=== PATIENT | female | born 1970 | race Caucasian/White ===

== ENCOUNTER 2016-06-17 06:35 | Observation (INO) | payer BC, OTHER ==
[~2016-06-17] VITALS: Ht 157.5 cm; Wt 61.7 kg
--- NOTE | ~2016-06-17 | D ---
[facility] [address] [address] DISCHARGE SUMMARY Name: ARISTEO CHÁVEZ Room #: 214-P [facility]..#: [id number] Admission: 06/17/16 Attend Phys: Raúl Gibson MD Discharge: Date of : 74 Report #: [id number] THIS REPORT FOR: //name// CC: Aristeo Gibson DATE OF SERVICE: 06/17/2016 DISCHARGE DIAGNOSES: 1. Supraventricular tachycardia. 2. Typical atrioventricular goyo reentrant tachycardia. PROCEDURES PERFORMED: SVT ablation. HISTORY OF PRESENT ILLNESS: The patient is a 46-year-old female with a history of supraventricular tachycardia, on beta blockers and flecainide therapy, who has failed medications and is here for an ablation. The patient underwent EP study. She had very easily inducible AV goyo reentrant tachycardia. Almost any pacing maneuvers would induce the tachycardia. This was successfully ablated. While testing on isoproterenol, the patient had some nonspecific arrhythmias such as some brief runs of atrial tachycardia as well as some atrial flutter that required cardioversion. This was not ablated as I did not think this was clinically relevant. HOSPITAL COURSE: I decided to monitor the patient overnight given that she had some of these arrhythmias while on isoproterenol. On telemetry overnight, she had no further arrhythmias. Following day, she was doing well without any chest pain. She had no shortness of breath. She did have some headaches from I believe the anesthesia. Examination of her groins showed some ecchymosis on both sides, as venous access was slightly more challenging than usual on both sides. However, there was no hematoma noted. As such, she was deemed stable for discharge home. I did discontinue her beta ken and flecainide therapy. Given that she is on control, I asked her to take aspirin for 2 days. Typically, if they are on control, I will place them on Pradaxa for 7-10 days, but given that she is having her period, we will hold off on this for approximately 3 days and then she will take the Pradaxa until she runs out of her samples. I instructed her to call if she has any chest pain, shortness of breath, leg swelling or worsening groin issues. She will follow up in my clinic in 3 months. By: [id number] Raúl Gibson MD /nt
[2016-06-17] MEDS ORDERED: PANTOPRAZOLE SO40 M1 PO (07:00)
[2016-06-17] MEDS ORDERED: LORYNA 3 MG-0.1 EACH PO (07:00)
[2016-06-17] MEDS ORDERED: ASPIR 8181 MG PO (07:01)
[2016-06-17] MEDS ORDERED: FLECAINIDE ACET50 M2 PO (07:02)
[2016-06-17] MEDS ORDERED: TOPROL XL25 MG PO (07:06)
[2016-06-17 07:09] VITALS: BP 126/51
[2016-06-17 07:19] LABS: BASOPHILS 0.5 % (0.0-2.0); EOSINOPHILS 1.5 % (0.0-3.0); HEMATOCRIT 41.1 % (37.0-47.0); HEMOGLOBIN 14.3 gm/dL (12.0-15.0); LYMPHOCYTES 30.6 % (24.0-44.0); MCH 32.7 pg (26.0-34.0); MCHC 34.8 g/dL (28.0-37.0); MONOCYTES 5.7 % (1.0-8.0); PLATELET COUNT 193 thou/uL (150-400); POLYS 61.7 % (36.0-66.0); RBC 4.37 mil/uL (4.20-5.00); RDW 12.8 % (10.5-14.5); WBC 4.9 thou/uL (4.0-11.0)
[2016-06-17 07:22] LABS: MANUAL DIFF NO
[2016-06-17 07:28] LABS: CALCIUM 8.7 mg/dL (8.5-10.1); CREATININE 0.8 mg/dL (0.6-1.3); POTASSIUM 3.7 mmol/L (3.5-5.1)
[2016-06-17 07:33] LABS: ALBUMIN 3.6 g/dL (3.4-5.0); TOTAL BILIRUBIN 0.2 mg/dL (<0.1-1.0); TOTAL PROTEIN 7.5 g/dL (6.4-8.2)
[2016-06-17 07:44] LABS: APTT 25.3 Seconds (24.5-32.8); PROTIME 9.7 Seconds (9.3-11.4)
[2016-06-17 19:18] VITALS: BP 106/62
[2016-06-18 03:50] VITALS: BP 104/65
[2016-06-18 07:17] VITALS: BP 100/69
[2016-06-18 10:31] VITALS: BP 100/69
== END 2016-06-18 11:57 | disposition home or self-care (01) ==
LOC: CATH 06:35 → 2N 13:07 → CATH 13:13 → 2N 06-18 11:57
PROVIDERS: Internal Medicine Cardiovascular Disease
DX: I47.1 Supraventricular tachycardia (principal)
CPT/HCPCS: 62110; 62900; 70005

== ENCOUNTER 2018-06-01 13:35 | Emergency (ER) | payer BC, OTHER ==
[~2018-06-01] VITALS: Ht 157.5 cm; Wt 58.1 kg
[~2018-06-01 13:35] MED LIST: ASPIR 8181 MG PO; FLECAINIDE ACET50 M2 PO; LORYNA 3 MG-0.1 EACH PO; PANTOPRAZOLE SO40 M1 PO; TOPROL XL25 MG PO
[2018-06-01] MEDS ORDERED: VITAMIN B-12500 MCG PO (14:02)
[2018-06-01] MEDS ORDERED: ZANTAC 150MG T150 MG PO (14:02)
[2018-06-01] MEDS ORDERED: CALCIUM 500 +1 EAC5 PO (14:03)
[2018-06-01 14:07] LABS: HEMATOCRIT 45.6 % (37.0-47.0); HEMOGLOBIN 15.9 gm/dL (12.0-15.0); MCH 34.1 pg (26.0-34.0); MCHC 34.9 g/dL (28.0-37.0); MCV 97.8 fL (80.0-100.0); RBC 4.67 mil/uL (4.20-5.00); RDW 13.1 % (10.5-14.5); WBC 7.5 thou/uL (4.0-11.0)
[2018-06-01 14:25] LABS: ANION GAP 10 mmol/L (7-16); BUN 11 mg/dL (7-18); CALCIUM 9.6 mg/dL (8.5-10.1); CHLORIDE 104 mmol/L (98-107); CO2 28 mmol/L (21-32); CREATININE 0.8 mg/dL (0.6-1.0); GLUCOSE 109 mg/dL (74-106); POTASSIUM 3.3 mmol/L (3.5-5.1); SODIUM 142 mmol/L (136-145)
[2018-06-01 14:33] LABS: ALBUMIN 4.1 g/dL (3.4-5.0); SGOT 28 U/L (15-37); SGPT 31 U/L (30-65); TOTAL BILIRUBIN 0.3 mg/dL (<0.1-1.0); TOTAL PROTEIN 8.1 g/dL (6.4-8.2); TROPONIN-I <0.06 ng/mL (<0.06)
--- NOTE | 2018-06-01 15:20 | EKG ---
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 : 1970 Requested By: Chichi Mckeon Order Number: [id number] MD: Long Mcmahon Measurements Intervals [place] Rate: 117 P: 71 [place]: 155 QRS: -63 QRSD: 88 T: 51 QT: 329 QTc: 459 Interpretive Statements Sinus tachycardia LAE Left anterior fascicular block Borderline low voltage, limb leads NS ST/T wave abnormalities No previous ECG available for comparison Electronically Signed On 06-01-2018 15:19:47 WOOD 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
[2018-06-01 15:38] VITALS: BP 116/71
--- NOTE | 2018-06-03 12:17 | HC ---
[facility] [place] [address] [place] [address] CONSULTATION Name: NOLA ARISTEO MCBRIDE [facility] [id number] Admission: 06/01/18 ������������������ Attend Phys: Discharge: 06/01/18 ������������������ Date of : 74 Report #: [id number] THIS REPORT FOR: //name// CC: Chichi Bedolla unknown TYPE OF REPORT: Cardiology consultation. REASON FOR CONSULTATION: SVT. HISTORY OF PRESENT ILLNESS: The patient is a 48-year-old patient of mine who has a history of SVT. She underwent prior EP study back in 2017 and had no inducible arrhythmias but has continued to have episodes of SVT. 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 Today, she had an episode while at work of palpitations. She used her monitor from [employer]. This showed an episode of supraventricular tachycardia at 200-222 beats per minute with no discernible P waves suggestive of possible AV goyo reentrant tachycardia. This episode lasted from 11:40 to about noon and then a repeat strip showed that she was in sinus tachycardia. She presented to the Emergency Room for further evaluation. Her presenting EKG showed a sinus tachycardia. Her heart rate is improved. She denies any chest pain, shortness of breath, PND, orthopnea, pre-syncope or syncope. PAST MEDICAL HISTORY: As above. SOCIAL HISTORY: Does not smoke. FAMILY HISTORY: Noncontributory. ALLERGIES: None. MEDICATIONS: Have been reviewed. REVIEW OF SYSTEMS: GENERAL: No fevers or chills. HEENT: No blurred vision. CARDIOVASCULAR: As above. PULMONARY: No productive cough. GASTROINTESTINAL: No nausea or vomiting. GENITOURINARY: No dysuria. MUSCULOSKELETAL: No myalgias or arthralgias. ENDOCRINE: No heat or cold intolerance. LABORATORY DATA: Her labs show white count 7.5, hemoglobin 15 and platelets 230. Sodium 142, potassium 3.3 and creatinine is 0.8. Troponin is negative. RADIOLOGICAL DATA: EKG shows sinus tachycardia with no ischemic changes. [facility] [address] [place] [address] CONSULTATION Name: ARISTEO CHÁVEZ Room #: [facility] KORY Gibson#: [id number] Admission: 06/01/18 ������������������ Attend Phys: Discharge: 06/01/18 ������������������ Date of : 74 Report #: [id number] ASSESSMENT: Supraventricular tachycardia. PLAN: It appears that the episode is resolved. I have sent her home with a prescription for Toprol. She has an appointment to see me in August. We did discuss considering possible repeat EP study and possible ablation. She is not ready for this at this time. ��������������������������������������������� <ELECTRONICALLY SIGNED> ���������������������������������������� By: Raúl Gibson MD ��������������������������������������������� 06/03/18 1217 1529 0053 Raúl Gibson MD /nt
== END 2018-06-01 15:38 | disposition home or self-care (01) ==
LOC: ER 13:35
PROVIDERS: Physician Assistant
DX: R00.0 Tachycardia, unspecified (principal); R00.2 Palpitations; Z86.79 Personal history of other diseases of the circulatory system; I48.91 Unspecified atrial fibrillation; Z90.89 Acquired absence of other organs; Z98.890 Other specified postprocedural states